=== PATIENT | female | born 1980 | race Caucasian/White ===

== ENCOUNTER 2022-01-04 20:52 | Emergency (ER) | payer OTHER ==
[2022-01-04 21:02] VITALS: BP 135/80; PULSE 62; RESP 18; TEMP 98.4; BMI 27.1
== END 2022-01-04 23:11 | disposition home or self-care (01) ==
LOC: JER 20:52
DX: M79.645 Pain in left finger(s) (principal); R22.32 Localized swelling, mass and lump, left upper limb
CPT/HCPCS: 73110-TC-LT-FY; 73130-TC-LT-FY; 99284-25